=== PATIENT | male | born 1940 | race Hispanic/Latino ===

== ENCOUNTER 2017-02-27 15:48 | Outpatient (CLI) | payer MEDICARE, OTHER ==
--- NOTE | 2017-02-27 16:21 | XRay Report ---
Chest 2 views: History: Chest pain. Findings: Normal cardiomediastinal silhouette the trachea is midline. Scarring/discoid atelectasis left lower lobe. Normal CP angles. Next Impression: Scarring/discoid atelectasis left lower lobe and
== END 2017-02-27 15:49 | disposition home or self-care (01) ==
LOC: SPVIMAG 15:48
PROVIDERS: ATTEND Internal Medicine
DX: R07.89 Other chest pain (principal)
CPT/HCPCS: 71020